=== PATIENT | male | born 1965 | race Asian ===

== ENCOUNTER 2019-05-25 08:37 | Day surgery (SDC) | payer BC ==
[~2019-05-25 08:37] MED LIST: Buffered Lidocaine 1% SYRIN* 1 ML/SYRINGE INTRADERM ONE
[2019-05-25] MEDS ORDERED: acetaZOLAMIDE TAB* 250 MG ONE (09:52)
[2019-05-25] MEDS ORDERED: Ketorolac 0.5% OPHTH (NF) 0.5 % 5 ML BTL ONE (09:52)
[2019-05-25] MEDS ORDERED: Neomycin/Polymy/Dex OPTH.SUSP* MAXITROL 0.1% 5 ML ONE (09:52)
[2019-05-25] MEDS ORDERED: Povidone Iodine 5% OPTH* 30 ML BTL ONE (09:52)
[2019-05-25] MEDS ORDERED: Lidocaine 1% MPF ** 5 ML VIAL ONE (09:52)
[2019-05-25] MEDS ORDERED: Lidocaine 2% w/ EPI 1:200,000* 20 ML SDV VIAL ONE (09:52)
[2019-05-25] MEDS ORDERED: Phenylephrine OPHTH SOL 2.5%* 2 ML ONE (09:52)
[2019-05-25] MEDS ORDERED: Proparacaine 0.5% OPHTH.SOL* 15 ML BTL ONE (09:52)
[2019-05-25] MEDS ORDERED: Cyclopentolate 1% OPTH.SOL* 2 ML BTL ONE (09:52)
[2019-05-25] MEDS ORDERED: Trypan Blue 0.06% SOL* 0.5 ML BTL ONE (10:24)
[2019-05-25] MEDS ORDERED: Midazolam* 1 MG/ML 2 ML VIAL (2 MG) ONE (10:31)
--- NOTE | 2019-05-25 11:27 | OP ---
OPERATIVE NOTE: DATE OF OPERATION: 05/25/19 DATE OF : 69 SURGEON: Dirk Bobo M.D. PREOPERATIVE DIAGNOSIS: Cataract, right eye. POSTOPERATIVE DIAGNOSIS: Cataract, right eye. OPERATIVE PROCEDURE: Extracapsular cataract extraction with intraocular lens implant and CTR, right eye. PROCEDURE: The patient was brought to the operating room after being given 1/2% Alcaine with epineph rine drops in the preoperative area. The eye was prepped and draped in the usual sterile fashion. S terile drape and eyelid speculum were placed. Again, topical 1/2% Alcaine with epinephrine was given . A paracentesis incision was made at the 9 o'clock position with the No.75 blade. Clear cornea inc ision 2.2 x 2.2-mm was created at the 12 o'clock position starting at the anterior limbus using the 2 .2-mm keratome. The anterior chamber was irrigated with 0.4 mL of 1% non-preservative intracameral l idocaine and filled with DisCoVisc. A capsulorrhexis was completed using the cystotome and the Utrat a forceps. Hydrodissection was performed with balanced salt solution. The lens nucleus was removed w ith the Phacoemulsification handpiece without incident. Cortex was removed with the irrigation-aspir ation handpiece. The capsular bag was re-inflated using DisCoVisc and an [id number] implant was inser johann with the shooter. Vision blue was used to stain the anterior capsule after insertion of the lens and capsular tension ring, a CTR 12 was inserted using its shooter. Indication for complex cataract surgery, cataract requiring capsular stain, status post vitrectomy required capsular tension ring. The irrigation-aspiration handpiece was used to remove all residual DisCoVisc. The eye was refilled with balanced salt solution and the wound checked and found to be watertight. Topical Maxitrol drops were given. [id number]/[facility] #: [id number]
[2019-05-25 12:11] VITALS: BP 143/78
== END 2019-05-25 11:16 | disposition home or self-care (01) ==
LOC: OREAST 08:37
PROVIDERS: ATTEND Specialist
DX: H25.811 Combined forms of age-related cataract, right eye (principal); H33.8 Other retinal detachments
CPT/HCPCS: A9270-GY; J2250; V2632